=== PATIENT | female | born 1980 | race Caucasian/White ===

== ENCOUNTER 2016-11-18 01:14 | Emergency (ER) | payer MEDICAID ==
[~2016-11-18] VITALS: Ht 170.2 cm; Wt 65.0 kg
[2016-11-18 01:27] VITALS: PULSE 98; RESP 24; TEMP 98.3; O2SAT 95
[2016-11-18] MEDS ORDERED: SODIUM CHLOR 0.9% 1000 ML INJ 1,000 ML IV ONE (01:30)
[2016-11-18] MEDS ORDERED: LORazepam 2 MG/ML VIAL IV PUSH ONE (01:30)
[2016-11-18 01:44] VITALS: BP 132/87; PULSE 85; RESP 17; O2SAT 96
[2016-11-18 02:04] LABS: AUTOMATED NEUTROPHIL # 5.6 TH/MM3 (1.8-7.7); BASOPHIL # 0.1 TH/MM3 (0-0.2); EOSINOPHIL # 0.1 TH/MM3 (0-0.4); EOSINOPHIL % 0.6 % (0.0-4.0); HEMATOCRIT 37.5 % (35.0-46.0); HEMO FLAGS DIFF FINAL; LYMPHOCYTE # 2.4 TH/MM3 (1.0-4.8); MEAN CELL VOLUME 86.6 FL (80.0-100.0); MEAN CORPUSCULAR HGB CONC 34.7 % (32.0-36.0); MONO % 8.4 % (0.0-8.0); PLATELET COUNT 209 TH/MM3 (150-450); RED BLOOD COUNT 4.33 MIL/MM3 (4.00-5.30); RED CELL DISTRIBUTION WIDTH 12.7 % (11.6-17.2); WHITE BLOOD COUNT 8.8 TH/MM3 (4.0-11.0)
[2016-11-18 02:07] LABS: AMPHETAMINE, URINE NEG (NEG); BACTERIA, URINE OCC /hpf; BARBITURATES, URINE NEG (NEG); BLOOD, URINE SMALL (NEG); COCAINE, URINE POS (NEG); COMMENT (UR) CATH-CULTURE IND; CULTURE IF INDICATED CATH CULTURE IND; GLUCOSE,URINE NEG (NEG); KETONE, URINE NEG (NEG); MUCUS URINE MOD /lpf (OCC); NITRITE,URINE POS (NEG); SQUAMOUS EPITHELIAL CELL URINE 1 /hpf (0-5); URINE COLOR YELLOW (YELLW/STRAW)
--- NOTE | 2016-11-18 02:14 | RADRPT ---
EXAM DATE/TIME: 11/18/2016 02:04 [facility] COMPARISON: No previous studies available for comparison. INDICATIONS : Found unresponsive RADIATION DOSE: 35.21 CTDIvol (mGy) MEDICAL HISTORY : Non-responsive. SURGICAL HISTORY : Non-responsive. ENCOUNTER: Initial ACUITY: 1 day PAIN SCALE: Non-responsive LOCATION: Bilateral cranial TECHNIQUE: Multiple contiguous axial images were obtained of the head. Using automated exposure control and adj ustment of the mA and/or kV according to patient size, radiation dose was kept as low as reasonably a chievable to obtain optimal diagnostic quality images. FINDINGS: CEREBRUM: The ventricles are normal for age. No evidence of midline shift, mass lesion, hemorrhage or acute in farction. No extra-axial fluid collections are seen. POSTERIOR FOSSA: The cerebellum and brainstem are intact. The 4th ventricle is midline. The cerebellopontine angle i s unremarkable. EXTRACRANIAL: The visualized portion of the orbits is intact. SKULL: The calvaria is intact. No evidence of skull fracture. CONCLUSION: 1. No acute intracranial abnormalities. There is some fluid in the left sphenoid sinus and ethmoid ai r cells. Florian Cortes MD on November 18, 2016 at 2:11 Board Certified Radiologist. This report was verified electronically.
[2016-11-18 02:15] LABS: ALT (GPT) 161 U/L (10-53); ANION GAP 13 MEQ/L (5-15); AST (GOT) 64 U/L (15-37); BLOOD UREA NITROGEN 13 MG/DL (7-18); CHLORIDE 108 MEQ/L (98-107); GLOMERULAR FILTRATION RATE 66 ML/MIN (>89); POTASSIUM 3.3 MEQ/L (3.5-5.1); SODIUM (NA) 143 MEQ/L (136-145)
[2016-11-18 02:19] LABS: ALKALINE PHOSPHATASE 75 U/L (45-117); BETA HCG QUANT LESS THAN 1 MIU/ML (0-5); TOTAL BILIRUBIN ADULT 0.6 MG/DL (0.2-1.0)
[2016-11-18 02:20] LABS: ACETAMINOPHEN LESS THAN 2.0 MCG/ML (10.0-30.0)
--- NOTE | 2016-11-18 02:23 | PD ---
HPI Chief Complaint: Alcohol/Drug Intoxication Time Seen by Provider: 01:21 Travel History International Travel<30 days: No Contact w/Intl Traveler<30days: No Traveled to known affect area: No History of Present Illness HPI The patient is a 31 something appearing female who presents to the [facility] emergency department with a history of being found on the side of the road with altered mentation. The patient was surrounded by people, however no longer provide any information according to ambulance services. A crack pipe noted near the patient. The patient was noted to be twitching intermittently in all extremities. The patient was intermittently crying although not providing any history. She had no identification on her person. The patient was noted to have a blood sugar of 81. The patient was noted to have track collier on her extremities. IV access was obtained and the patient's foot by ambulance services prior to arrival. The patient was given normal saline a 500 mL bolus en route to this facility. The patient is intermittently crying and twitching all of her extremities. The patient was placed in soft restraints for her safety. The patient will intermittently make eye contact and spontaneously open her eyes, however she is not providing any history. [facility] Past Medical History Narrative Medical The patient's past medical history is unknown. Medical History: Unable to Obtain ?: Unknown Past Surgical History Narrative Surgical The patient's past surgical history is not able to be obtained. Surgical History: Unable to Obtain Social History Narrative Social History The patient's social history is not able to be obtained. Alcohol Use: No (unable to obtain) Tobacco Use: No Substance Use: Yes Allergies-Medications (Allergen,Severity, Reaction): Coded Allergies: UNOBTAINABLE (Unverified , 11/18/16) Reported Meds & Prescriptions Reported Meds & Active Scripts Active Bactrim DS (Sulfamethoxazole-Trimethoprim) 800-160 Mg Tab 1 Tab PO BID Narrative Medication The patient's medications are unable to be obtained. Review of Systems ROS Limitations: Altered Mental Status, Poor Historian Neurologic: Positive: Change in Mentation Psychiatric: Positive: Substance Abuse Physical Exam Narrative General: The patient is a well-developed, disheveled-appearing female, writhing around in the bed on my arrival. Intermittently twitching random extremities. The patient is crying, however she refuses to provide any history. Head and Neck exam: Head is normocephalic atraumatic. Eyes: Pupils are equal round and reactive to light and 3 mm. Nose: Midline septum with pink mucous membranes Mouth: Dentition unremarkable. Moist mucus membranes. Posterior oropharynx is not erythematous. No tonsillar hypertrophy. Uvula midline. Airway patent. Neck: No palpable lymphadenopathy. No nuchal rigidity. No thyromegaly. Cardiovascular: Sinus tachycardia in the low 100s without murmurs, gallops, or rubs. No pulse deficit to the extremities and simultaneous auscultation and palpation of her radial artery. Lungs: Clear to auscultation bilaterally. No wheezes, rhonchi, or rales. Abdomen: Soft, without tenderness to palpation in all 4 quadrants of the abdomen. No guarding, rebound, or rigidity. Normal bowel sounds are audible. Extremities: No clubbing, cyanosis, or edema. 2+ pulses in all 4 extremities. No calf tenderness on palpation. Back: No spinous process tenderness to palpation. No costovertebral angle tenderness to palpation. Neurologic Exam: The patient is uncooperative with formal neurologic testing. She has no facial asymmetry. She is moving all extremities with 5 over 5 strength and has intact sensation over all dermatomes. Skin Exam: No rash noted. Intact skin that is warm and dry. The patient has track collier consistent with IV drug use. Data Data Last Documented VS Vital Signs Date Time Temp Pulse Resp B/P Pulse Ox O2 Delivery O2 Flow Rate FiO2 11/18/16 03:53 75 15 116/75 99 Nasal Cannula 2 11/18/16 01:27 98.3 Orders Complete Blood Count With Diff (11/18/16:27) Comprehensive Metabolic Panel (11/18/16:27) Urinalysis - C+S If Indicated (11/18/16:) Beta Hcg (Quant/Titer) (11/18/16:27) Chest, Single Ap (11/18/16:27) Ct Brain W/O Iv Contrast(Rout) (11/18/16:27) Iv Access Insert/Monitor (11/18/16:27) Ecg Monitoring (11/18/16:) Oximetry (11/18/16:27) Drug Screen, Random Urine (11/18/16:) Alcohol (Ethanol) (3/1/17 01:27) Salicylates (Aspirin) (11/18/16 01:27) Tylenol (Acetaminophen) (11/18/16 01:27) Sodium Chlor 0.9% 1000 Ml Inj (Ns 1000 M (11/18/16 01:30) Lorazepam Inj (Ativan Inj) (11/18/16 01:30) Urine Culture (11/18/16 01:40) Ceftriaxone Inj (Rocephin Inj) (11/18/16 03:45) Labs Laboratory Tests Test 11/18/16 01:40 White Blood Count 8.8 TH/MM3 Red Blood Count 4.33 MIL/MM3 Hemoglobin 13.0 GM/DL Hematocrit 37.5 % Mean Corpuscular Volume 86.6 FL Mean Corpuscular Hemoglobin 30.0 PG Mean Corpuscular Hemoglobin 34.7 % Concent Red Cell Distribution Width 12.7 % Platelet Count 209 TH/MM3 Mean Platelet Volume 9.5 FL Neutrophils (%) (Auto) 63.0 % Lymphocytes (%) (Auto) 27.0 % Monocytes (%) (Auto) 8.4 % Eosinophils (%) (Auto) 0.6 % Basophils (%) (Auto) 1.0 % Neutrophils # (Auto) 5.6 TH/MM3 Lymphocytes # (Auto) 2.4 TH/MM3 Monocytes # (Auto) 0.7 TH/MM3 Eosinophils # (Auto) 0.1 TH/MM3 Basophils # (Auto) 0.1 TH/MM3 CBC Comment DIFF FINAL Differential Comment Urine Color YELLOW Urine Turbidity HAZY Urine pH 5.0 Urine Specific [place] 1.027 Urine Protein 30 mg/dL Urine Glucose (UA) NEG mg/dL Urine Ketones NEG mg/dL Urine Occult Blood SMALL Urine Nitrite POS Urine Bilirubin NEG Urine Urobilinogen 2.0 MG/DL Urine Leukocyte Esterase TRACE Urine RBC 2 /hpf Urine WBC 4 /hpf Urine Squamous Epithelial 1 /hpf Cells Urine Amorphous Sediment RARE Urine Bacteria OCC /hpf Urine Mucus MOD /lpf Microscopic Urinalysis Comment CATH-CULTURE IND Sodium Level 143 MEQ/L Potassium Level 3.3 MEQ/L Chloride Level 108 MEQ/L Carbon Dioxide Level 22.0 MEQ/L Anion Gap 13 MEQ/L Blood Urea Nitrogen 13 MG/DL Creatinine 0.76 MG/DL Estimat Glomerular Filtration 66 ML/MIN Rate Random Glucose 87 MG/DL Calcium Level 8.4 MG/DL Total Bilirubin 0.6 MG/DL Aspartate Amino Transf 64 U/L (AST/SGOT) Alanine Aminotransferase 161 U/L (ALT/SGPT) Alkaline Phosphatase 75 U/L Total Protein 7.6 GM/DL Albumin 3.6 GM/DL Human Chorionic Gonadotropin, LESS THAN 1 Quant MIU/ML Salicylates Level 3.6 MG/DL Urine Opiates Screen POS Acetaminophen Level LESS THAN 2.0 MCG/ML Urine Barbiturates Screen NEG Urine Amphetamines Screen NEG Urine Benzodiazepines Screen NEG Urine Cocaine Screen POS Urine Cannabinoids Screen NEG Ethyl Alcohol Level 28 MG/DL MDM Medical Decision Making Medical Screen Exam Complete: Yes Emergency Medical Condition: Yes Medical Record Reviewed: Yes Interpretation(s) Last Impressions Head CT 11/18/16126 Signed Impressions: Service Date/Time: Friday, November 18, 2016 02:04 - CONCLUSION: 1. No acute intracranial abnormalities. There is some fluid in the left sphenoid sinus and ethmoid air cells. Florian Cortes MD Chest X-Ray 11/18/16126 Signed Impressions: Service Date/Time: Friday, November 18, 2016 02:23 - CONCLUSION: No acute disease. Florian Cortes MD Differential Diagnosis Illicit substance intoxication, versus withdrawal syndrome, versus psychosis related to his psychiatric disorder, versus encephalopathy, versus intracranial abnormality Narrative Course During the course of the patients emergency department visit, the patients history, examination, and differential diagnosis were reviewed with the patient. The patient had IV access obtained and blood work sent for analysis. The patient was placed on a lunchroom monitor with oximetry and blood pressure monitoring. The patient was placed in soft limb restraints for her and the staff's safety. The patient was given Ativan [address] scan of the brain was ordered, chest x-ray was ordered. The patients laboratory studies were reviewed and remarkable for a white count of 8.8, hemoglobin 13, platelets 209, monocytes 8.4, CMP is remarkable for a potassium of 3.3 which will be supplemented orally when she is more awake and alert. Chloride is 108, GFR 66, calcium 8.4, AST 64, ALT 161, heart safety test is negative. Urine drug screen is positive for opiates and cocaine, salicylate 3.6, acetaminophen less than 2, alcohol level XXVIII, urinalysis shows 30 protein, small occult blood, positive nitrite, trace leukocyte esterase , occasional bacteria. This was a catheterized specimen. A culture will be done. Radiology studies were reviewed and remarkable for a chest x-ray that shows no acute abnormality. CT scan of the brain shows no acute intracranial abnormality. There is some fluid in the left sphenoid sinus and ethmoid air cells. At approximately 6:15 AM, the patient was reexamined. The patient is taken out of her soft restraints. The patient was sleeping soundly although arousable to voice. The patient was able to tell me her name was Blanka. The patient was aware that she was in the hospital. The patient refused to answer any other questions and then turned over pulled the sheet over her head and went back to sleep. The patient will be observed until she is more awake and alert and then she will be discharged from the hospital. The patient will be discharged home with a prescription for Bactrim for a urinary tract infection. The patient is resting comfortably and feels better, is alert and in no distress. The patients results and examination findings were discussed with the patient. The repeat examination is unremarkable and benign. The history, exam, diagnostic testing, and current condition do not suggest any significant pathology to warrant further testing, continued ED treatment, admission, or surgical evaluation at this point. The vital signs have been stable. The patient does not have uncontrollable pain, intractable vomiting, or other significant symptoms. The patient's condition is stable and appropriate for discharge. The patient will pursue further outpatient evaluation with a primary care physician or other designated or consulting physician as indicated in the discharge instructions. The patient expressed understanding and was agreeable with this plan. Diagnosis Primary Impression: Altered mental status Qualified Code: R41.0 - Disorientation Additional Impressions: Polysubstance abuse Urinary tract infection Qualified Code: N30.00 - Acute cystitis without hematuria Referrals: Primary Care Physician 3 days Patient Instructions: General Instructions, Polysubstance Abuse (ED), Urinary Tract Infection in Women (ED) Med/Other Pt SpecificInfo: Prescription(s) given Scripts Sulfamethoxazole-Trimethoprim (Bactrim DS)800-160 Mg Tab1 Tab PO BID #20 TAB Ref 0 Prov:Danielle Rollins MD 11/18/16 Disposition: 01 DISCHARGE HOME Condition: Stable Danielle Rollins MD Nov 18, 2016 02:23
--- NOTE | 2016-11-18 02:51 | RADRPT ---
EXAM DATE/TIME: 11/18/2016 02:23 [facility] COMPARISON: No previous studies available for comparison. INDICATIONS : Unresponsive. Possible overdose. MEDICAL HISTORY : None. SURGICAL HISTORY : None. ENCOUNTER: Initial ACUITY: 1 day PAIN SCORE: Non-responsive. LOCATION: Bilateral chest FINDINGS: A single view of the chest demonstrates the lungs to be symmetrically aerated without evidence of mas s, infiltrate or effusion. The cardiomediastinal contours are unremarkable. Osseous structures are intact. CONCLUSION: No acute disease. Florian Cortes MD on November 18, 2016 at 2:49 Board Certified Radiologist. This report was verified electronically.
[2016-11-18] MEDS ORDERED: cefTRIAXone INJ 1,000 MG in SODIUM CHLORIDE 0.9% INJ 100 ML IV ONE (03:45)
[2016-11-18 03:53] VITALS: BP 116/75; PULSE 75; RESP 15; O2SAT 99
[2016-11-18] MEDS ORDERED: BACT800T5 PO (04:27)
[2016-11-18] MEDS ORDERED: POTASSIUM CHLORIDE 20 MEQ CONTROLLED RELEASE TAB PO ONE (06:30)
[2016-11-18 06:31] VITALS: BP 121/67; PULSE 85; RESP 16; O2SAT 99
== END 2016-11-18 09:06 | disposition home or self-care (01) ==
LOC: NEPE 01:14 → EDBD 01:14 → NEPE 09:06
DX: R41.82 Altered mental status, unspecified (principal); F19.10 Other psychoactive substance abuse, uncomplicated; N30.00 Acute cystitis without hematuria; B96.20 Unspecified Escherichia coli [E. coli] as the cause of diseases classified elsewhere
CPT/HCPCS: 70450; 71010; 80053; 80307; 80320; 81001; 84702; 85025; 87077; 87086; 87186; 96361; 96365; 96375; 99285; J0696; J2060; J7030; 80329; G0480